=== PATIENT | female | born 1940 | race Caucasian/White ===

== ENCOUNTER 2022-08-01 17:41 | Inpatient (IN) | payer MEDICARE, OTHER ==
[~2022-08-01] VITALS: Ht 175.3 cm; Wt 76.3 kg
[2022-08-01 18:08] VITALS: BP 151/66; PULSE 69; TEMP 98.4
[2022-08-01] MEDS ORDERED: ZYLOPRIM 100MG100 MG PO (18:26)
[2022-08-01] MEDS ORDERED: PRINIVIL20 MG PO (18:27)
[2022-08-01] MEDS ORDERED: PRAVACHOL10 MG PO (18:27)
[2022-08-01] MEDS ORDERED: SYNTHROID0.05 MG/TA PO (18:27)
[2022-08-01] MEDS ORDERED: NORVASC 5MG5 MG/TAB PO (18:28)
[2022-08-01] MEDS ORDERED: CALCIUM 600MG+D1 TAB PO (18:54)
[2022-08-01] MEDS ORDERED: PREVACID 15MG15 M1 PO (18:54)
[2022-08-01] MEDS ORDERED: GLUCOSAMINE & C1 CA2 PO (18:55)
[2022-08-01] MEDS ORDERED: ASPIRIN 81M81 MG/TA2 PO (18:55)
--- NOTE | 2022-08-01 19:06 | NUR ---
Patient admitted to room 318 from [place]. Pharmacy, allergies, and medications reviewed. VSS. Patient A&O. Report given to oncoming nurse.
[2022-08-01 20:22] LABS: THYROID STIMULATING HORMONE 2.787 uIU/mL (0.350-4.940)
[2022-08-01 20:36] VITALS: BP 148/65; PULSE 67; TEMP 97.8
--- NOTE | 2022-08-01 22:29 | NUR ---
Patient assessed at approximately 1999. Alert and oriented x 4, and able to make needs known. Denies having pain and discomfort. Peripheral INT started to right forearm. Patient on telemetry, normal sinus. Voices no questions, needs, or concerns at time of assessement. In recliner with call light within reach. Given sandwich and water as requested.
[2022-08-01 23:36] LABS: ALBUMIN 4.1 gm/dL (3.4-4.8); BILIRUBIN,TOTAL 0.4 mg/dL (0.2-1.2); CALCIUM 9.8 mg/dL (8.4-10.2); CREATININE, serum 1.39 mg/dL (0.57-1.11); POTASSIUM 4.2 mmol/L (3.5-4.5); TOTAL PROTEIN 6.8 gm/dL (6.2-8.1)
[2022-08-02 00:16] VITALS: BP 126/50; PULSE 63; TEMP 97.8
[2022-08-02 03:59] VITALS: BP 135/63; PULSE 57; TEMP 97.9
--- NOTE | 2022-08-02 06:28 | NUR ---
Patient reports not sleeping well tonight. Denies pain and discomfort. Did take shower this morning and linens changed. Voices no further questions, needs, or concerns at this time.
[2022-08-02 07:13] VITALS: BP 143/66; PULSE 58; TEMP 97.6
[2022-08-02 11:34] VITALS: BP 131/69; PULSE 66; TEMP 97.6
--- NOTE | 2022-08-02 12:25 | NUR ---
SW met with patient to complete intake. Patient states that she lives in [facility] alone. Point of contact is her niece Nicci Chaput [phone]. Patient does not use DME, is independent with ADLs, and does not utilize HH services at this time. PCP is Dr. Bourgeois, and pharmacy is [facility]. Patient does not have anyone appointed as DPOA/HC at this time. Patient states her plan is to return to her home in [place] upon DC. SETH will continue to follow. DC plan: home
--- NOTE | 2022-08-02 12:36 | NUR ---
[facility] rounds: [facility] visit completed. Patient accepted both prayer and discussion. She misses her dog David. [facility] prayed for Patient and for David.
[2022-08-02 15:43] VITALS: BP 143/68; PULSE 68; TEMP 97.3
--- NOTE | 2022-08-02 18:13 | NUR ---
PATIENT AWAKE ALERT AND ORIENTED, SHE IS RESTING IN HER RECLINER. SHE VOICES NO COMPLAINTS OR NEEDS AT THIS TIME. BELONGINGS AND CALL LIGHT WITH IN REACH. WILL CONT. TO MONITOR.
[2022-08-02 19:51] VITALS: BP 153/71; PULSE 63; TEMP 97.7
[2022-08-03] VITALS (7 sets, daily range): BP systolic 122–152; BP diastolic 54–70; PULSE 50–65; TEMP 97.4–98.6
--- NOTE | 2022-08-03 06:03 | NUR ---
PATIENT RESTED QUIETLY THIS SHIFT. PATIENT REQUESTED AND RECEIVED PRN MELATONIN FOR SLEEP AND PATIENT REPORTED SLEEPING APPROX 2 HOURS THEN WAS UNABLE TO GO BACK TO SLEEP. PATIENT ALSO RECEIVED PRN TYLENOL FOR COMPLAINTS OF NECK AND SHOULDER PAIN ALONG WITH WARM BLANKET AND PATIENT REPORTED EFFECTIVE.
--- NOTE | 2022-08-03 07:00 | NUR ---
TELE CALLED AND REPORTED A-FIB WITH HR IN THE 40'S & 50'S. PATIENT IS ASYMPTOMATIC. STAT EKG. NOTIFIED HOSPITALIST & CARDS.
--- NOTE | 2022-08-03 08:00 | NUR ---
PATIENT IS A&O. VSS ON TELE. DENIES COMPLAINTS. 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 AWAITING CARDS TO ROUND. INDEPENDENT IN ROOM. DNR STATUS. HEAD TO TOE ASSESSMENT COMPLETE. AM MEDS GIVEN. RIGHT FORARM IV TO INT. NO OTHER NEEDS AT THIS TIME. CALL LIGHT IN REACH.
--- NOTE | 2022-08-03 13:15 | NUR ---
NURSING NOTED, WHAT APPEARED TO BE ST ELEVATION ON THE TELE MONITOR, ST RANGING FROM .38 TO .55, TELE & CARDS NOTIFIED. PATIENT ASYMPTOMATIC. NO NEW ORDERS FROM . WILL MONITOR.
[2022-08-04] VITALS (12 sets, daily range): BP systolic 103–149; BP diastolic 53–83; PULSE 55–74; TEMP 97.6–98.3
--- NOTE | 2022-08-04 06:25 | NUR ---
PATIENT RESTED QUIETLY THIS SHIFT. PATIENT RECEIVED PRN TYLENOL AT HS. PATIENT REPORTED SLEEPING A LITTLE BETTER THIS SHIFT WITH SCHEDULED MELATONIN. PATIENT UP AND SHOWERED THIS AM. PRE OP FLUIDS STARTED ORDERED.
[2022-08-04 06:43] LABS: CALCIUM 9.9 mg/dL (8.4-10.2); CREATININE, serum 1.36 mg/dL (0.57-1.11); MAGNESIUM 2.1 mg/dL (1.6-2.6); POTASSIUM 3.9 mmol/L (3.5-4.5)
--- NOTE | 2022-08-04 09:29 | NUR ---
SEE MERGE DOCUMENTATION FOR MEDICATION ADMINISTRATION AND INTRA/POST PROCEDURE SEDATION ASSESSMENTS.
--- NOTE | 2022-08-04 11:26 | NUR ---
Patient back from pacemaker placement. Post op vitals in progress, stable at this time. Shift assessment preformed. Pacer site is dressed with gauze, site CDI, free from hematoma. Patient denies any pain, discomfort, SOA, or further needs at this time. Call light in reach. Family at the bedside.
[2022-08-04 12:14] LABS: TROPONIN-I < 0.010 ng/mL (0.00-0.033)
--- NOTE | 2022-08-04 13:13 | NUR ---
Tack Puller collaborated with RN who advised patient has been independent in the room.
--- NOTE | 2022-08-04 18:00 | NUR ---
Post op vitals completed. Pacer site is soft and free from hematoma. Dressing is CDI. VSS. Patient A&O. Patient denies any pain, discomfort at this time. Call light in reach.
--- NOTE | 2022-08-04 20:15 | NUR ---
Initial shift assessment done- pleasant, alert/oriented x4, up walking around the room, states shes feeling really good, better than she has for a long time- pacemaker site dressing dry and intact, has ice to site, sling to left arm, Tele on, paced, INT to R/FA,, requesting Tylenol at this time, also Melatonin-- wants to get a good night sleep tonight.
[2022-08-05 03:45] VITALS: BP 112/53; PULSE 62; TEMP 98.4
--- NOTE | 2022-08-05 05:43 | NUR ---
Denies pain, ice to pacemaker site,VSS, Quiet night, did get maybe a couple hours sleep is all, no requests, pleasant. Dressing to pacemaker site dry and intact.
[2022-08-05] MEDS ORDERED: TOPROL XL 25MG25 MG PO (07:47)
[2022-08-05] MEDS ORDERED: CEPHALEXIN500 M1 PO (07:48)
--- NOTE | 2022-08-05 08:00 | NUR ---
Pt awake and sitting in chair. Morning medications administered per eMAR. Shift assessment completed. Dressing on L upper chest CDI; pt currently icing site. INT on R forearm intact; no edema or redness. Pt denies having any pain at this time. Call light within reach.
[2022-08-05 08:30] VITALS: BP 110/56; PULSE 63; TEMP 98.1
[2022-08-05 12:27] VITALS: BP 133/51; PULSE 60; TEMP 97.8
[2022-08-05 16:05] VITALS: BP 125/62; PULSE 68; TEMP 97.7
[2022-08-05 16:06] VITALS: BP 125/62; PULSE 68; TEMP 97.7
--- NOTE | 2022-08-05 17:34 | NUR ---
Pt discharged. Pt transferred in wheelchair by this nurse to the parking area. Pt accompanied by relative named Nicci.
--- NOTE | 2022-08-05 17:39 | NUR ---
Patient deemed fit for discharge. Discharge education/instructions discussed. Incision care discussed. All questions answered. IV DCD by REMI Guerrero. Catheter intact, no signs of phlebitis. Patient denies any further pain, discomfort, SOA, or further needs at this time. Patient escorted from building via wheelchair by [facility] Staff. Daughter transporting home.
== END 2022-08-05 17:35 | disposition home or self-care (01) | DRG 244 ==
LOC: MEDICAL 17:41
PROVIDERS: Nurse Practitioner Family; ADMIT Internal Medicine
PROC: 0JH606Z Insertion of Pacemaker, Dual Chamber into Chest Subcutaneous Tissue and Fascia, Open Approach (ICD-10-PCS; principal; 2022-08-04)
PROC: 02H63JZ Insertion of Pacemaker Lead into Right Atrium, Percutaneous Approach (ICD-10-PCS; 2022-08-04)
PROC: 02HK3JZ Insertion of Pacemaker Lead into Right Ventricle, Percutaneous Approach (ICD-10-PCS; 2022-08-04)
DX: R00.1 Bradycardia, unspecified (principal); I49.3 Ventricular premature depolarization; E78.5 Hyperlipidemia, unspecified; E03.9 Hypothyroidism, unspecified; D50.9 Iron deficiency anemia, unspecified; E79.0 Hyperuricemia without signs of inflammatory arthritis and tophaceous disease; Z66 Do not resuscitate; I10 Essential (primary) hypertension; Z86.718 Personal history of other venous thrombosis and embolism; Z79.82 Long term (current) use of aspirin; Z79.890 Hormone replacement therapy; Z88.8 Allergy status to other drugs, medicaments and biological substances; Z91.014 Allergy to mammalian meats; Z91.040 Latex allergy status
CPT/HCPCS: C1769; C1785; C1894; C1898; G0378; J0690; J2250; J3010